=== PATIENT | female | born 1985 | race Caucasian/White ===

== ENCOUNTER 2016-09-10 06:09 | Day surgery (SDC) | payer OTHER ==
[~2016-09-10] VITALS: Ht 160 cm; Wt 65.8 kg
[~2016-09-10 06:09] MED LIST: ABILIFY5 MG; ABILIFY5 MG PO; AMBIEN10 MG; AMBIEN10 MG PO; AZATHIOPRINE50 MG PO; BACTRIM,SEPT1 TABLET PO; BENTYL20 MG PO; Bentyl PO; Berocca Plus PO; CELEXA10 MG PO; CIPRO500 MG PO; CIPROFLOXACIN500 M1 PO; CITRATE OF MAG296 ML PO; COLACE100 MG PO; COLACE50 MG PO; Chromagen, Feogen, M PO; DELTASONE20 M1 PO; DILAUDID4 MG PO; Diflucan PO; ENDOCET 5-3251 EACH PO; FAT EMULSION 20% IV; FLAGYL500 MG PO; Flagyl PO; Folvite PO; HUMIRA20 MG/0.4 SQ; HUMIRA40 MG/0.1 SC; HYDROCODON-ACE1 EAC7 PO; HYDROCODON-ACE1 EACH PO; IBUPROFEN400 MG; IMURAN50 MG PO; Imuran PO; KEFLEX500 MG PO; Keflex PO; LEXAPRO20 MG PO; Levaquin PO; MACRODANTIN50 M1 PO; MEDROL DOSEPAK4 MG PO; METRONIDAZOLE500 MG PO; MIRALAX17 GM PO; MIRENA52 MG IY; NATALCARE RX1 TABLE1 PO; Niferex-150,Ferrex 1 PO; OCELLA TABLET1 EACH PO; ONDANSETRON ODT4 MG PO; OXYCODONE HCL10 MG; OXYCODONE HCL10 MG PO; PERCOCET 5/31 TABLET PO; PREDNISONE10 MG PO; PREDNISONE2.5 MG PO; PREDNISONE20 MG PO; PROMETHAZINE HC25 M1; PROTONIX40 MG PO; PYRIDIUM100 MG PO; Percocet 5/325,Endoc PO; REMICADE10 MG/ML IV; Reglan PO; Robitussin, Organidi PO; SULFASALAZINE500 MG PO; ULTRAM50 MG PO; VANCOMYCIN1 GM/150 M IV; VICODIN 5-3001 EACH PO; VIIBRYD40 MG PO; VITAMIN B12 100MCG PO; XANAX0.25 MG PO; XANAX0.5 MG PO; Xanax PO; ZOFRAN ODT4 MG PO; ZOFRAN4 MG PO; Zofran PO; predniSONE PO
[2016-09-10 07:18] LABS: EOSINOPHIL (%) 1.8 % (0-5); EOSINOPHIL COUNT 0.1 K/uL (0-0.3); HEMATOCRIT 33.1 % (36.0-46.0); IMMATURE GRANULOCYTE (%) 0.2 % (0.0-0.7); INSTRUMENT ABS NEUTROPHIL CT 2.5 K/uL; LYMPHOCYTE COUNT 1.5 K/uL (1.0-2.8); MCH 28.1 PG (29.0-34.0); MCHC 31.7 G/DL (30.0-36.0); MCV 88.5 FL (83-99); MEAN PLAT.VOLUME 11.5 uM^3 (9.5-12.4); MONOCYTE (%) 7.7 % (3-12); MONOCYTE COUNT 0.4 K/uL (0-0.8); NEUTROPHIL (%) 56.1 % (45-76); NEUTROPHIL COUNT 2.5 K/uL (1.8-6.4); PLATELET COUNT 296 K/uL (156-360); RBC DIS.WIDTH-CV 14.3 % (11.8-14.6); RBC DIS.WIDTH-SD 45.9 % (39-53); RED BLOOD COUNT 3.74 M/uL (3.80-5.20); WHITE BLOOD COUNT 4.5 K/uL (4.1-10.2)
[2016-09-10 07:51] VITALS: BP 105/66
[2016-09-10] MEDS ORDERED: BACTRIM,SEPT1 TABLET PO (09:41)
[2016-09-10 13:18] VITALS: BP 101/63
[2016-09-10 13:56] VITALS: BP 101/60
== END 2016-09-10 14:20 | disposition home or self-care (01) ==
LOC: SDC 06:09
PROVIDERS: Obstetrics & Gynecology
PROC: 0U9M0ZZ Drainage of Vulva, Open Approach (ICD-10-PCS; principal; 2016-09-10)
DX: N76.4 Abscess of vulva (principal); K50.90 Crohn's disease, unspecified, without complications; D50.0 Iron deficiency anemia secondary to blood loss (chronic)
CPT/HCPCS: 84702; 85025; 86900; 86901; J0131; J1100; J1170; J1580; J1885; J2250; J2405; J3010; J7050; Q0175